=== PATIENT | male | born 1950 | race African-American/Black ===

== ENCOUNTER 2019-07-31 11:17 | Emergency (ER) | payer OTHER ==
[~2019-07-31] VITALS: Ht 177.8 cm; Wt 79.0 kg
[2019-07-31 15:27] LABS: CLARITY URINE CLEAR (CLEAR); COLOR URINE YELLOW (YELLOW); KETONES URINE NEGATIVE (NEGATIVE); LEUKOCYTE ESTERASE URINE NEGATIVE (NEGATIVE); NITRITE URINE NEGATIVE (NEGATIVE); OCCULT BLOOD URINE NEGATIVE (NEGATIVE); PROTEIN URINE NEGATIVE (NEGATIVE); SPECIFIC GRAVITY URINE 1.022 (1.005-1.030); UROBILINOGEN URINE 0.2 E.U./dL (0.2-1.0)
[2019-07-31 16:56] VITALS: BP 122/78
== END 2019-07-31 16:56 | disposition home or self-care (01) ==
LOC: ER 11:17
DX: M54.41 Lumbago with sciatica, right side (principal); J45.909 Unspecified asthma, uncomplicated; H40.9 Unspecified glaucoma
CPT/HCPCS: 72131; 81003; 99284

== ENCOUNTER 2020-09-20 15:03 | Emergency (ER) | payer OTHER ==
[~2020-09-20] VITALS: Ht 180.3 cm; Wt 70.0 kg
[2020-09-20] MEDS ORDERED: gabapentin (15:06)
[2020-09-20] MEDS ORDERED: adderal (15:06)
[2020-09-20] MEDS ORDERED: NITROGLYCERIN 0.4MG TABLET SL SL PRN (16:00)
[2020-09-20 16:24] LABS: BASOPHILS % 0.8 % (0.0-2.0); EOSINOPHILS % 3.3 % (0.0-5.0); HEMATOCRIT. 47.6 % (42.0-52.0); HEMOGLOBIN. 16.1 g/dL (14.0-18.0); LYMPHOCYTES % 26.3 % (20.0-50.0); MEAN CORPUSCULAR HEMOGLOBIN 30.3 pg (28.0-32.0); MEAN CORPUSCULAR VOLUME 89.7 fL (80.0-94.0); MEAN PLATELET VOLUME 9.4 fl (7.4-10.4); MONOCYTES % 7.7 % (2.0-8.0); NEUTROPHILS % 61.9 % (40.0-76.0); PLATELET 214 x1000/uL (130-400); RED CELL DISTRIBUTION WIDTH 13.6 % (11.6-14.6)
[2020-09-20 16:35] LABS: D-DIMER 0.36 mg/L FEU (<0.50); PARTIAL THROMBOPLASTIN TIME 29.1 sec (23.4-31.0); PROTHROMBIN TIME 10.9 sec (9.6-11.0)
[2020-09-20 16:37] LABS: CHLORIDE 110 mEq/L (98-107)
[2020-09-20 21:28] VITALS: BP 158/107
== END 2020-09-20 21:43 | disposition short-term general hospital (02) ==
LOC: ER 15:03 → CANBEDREQ 19:19 → ER 21:43
DX: R07.89 Other chest pain (principal); J45.909 Unspecified asthma, uncomplicated; Z98.890 Other specified postprocedural states
CPT/HCPCS: 36415; 71045; 80053; 83880; 84484; 85025; 85379; 93005; 99285